=== PATIENT | male | born 1945 | race Caucasian/White ===

== ENCOUNTER 2021-01-01 11:50 | Emergency (ER) | payer MEDICARE ==
[~2021-01-01] VITALS: Ht 172.7 cm; Wt 94.8 kg
[2021-01-01] MEDS ORDERED: DILTIAZEM 24HR360 MG PO (12:21)
[2021-01-01] MEDS ORDERED: ZOLOFT100 MG PO (12:21)
[2021-01-01] MEDS ORDERED: TERAZOSIN HCL10 MG PO (12:21)
[2021-01-01] MEDS ORDERED: NORVASC10 MG PO (12:22)
[2021-01-01] MEDS ORDERED: ZESTRIL40 MG PO (12:22)
[2021-01-01] MEDS ORDERED: MONTELUKAST SOD10 MG PO (12:22)
[2021-01-01] MEDS ORDERED: BUSPIRONE HCL5 MG PO (12:23)
[2021-01-01] MEDS ORDERED: ACYCLOVIR800 MG PO (12:25)
== END 2021-01-01 12:30 | disposition home or self-care (01) ==
LOC: ED 11:50
DX: B02.9 Zoster without complications (principal); I10 Essential (primary) hypertension
CPT/HCPCS: 99282

== ENCOUNTER 2021-03-15 01:13 | Observation (INO) | payer OTHER ==
[~2021-03-15] VITALS: Ht 172.7 cm; Wt 91.7 kg
[~2021-03-15 01:13] MED LIST: ACYCLOVIR800 MG PO; BUSPIRONE HCL5 MG PO; DILTIAZEM 24HR360 MG PO; MONTELUKAST SOD10 MG PO; NORVASC10 MG PO; ZESTRIL40 MG PO; ZOLOFT100 MG PO
--- NOTE | 2021-03-15 06:40 | NUR ---
pt ARRIVES TO MS VIA STRETCHER, AMBULATORY TO HOSPITAL BED. PRESENT IN ROOM. IVF INFUSING WNL ORDERED. ORIENTATION TO ROOM PROVIDED. pt RATES PAIN 8/10 IN ABDOMEN, PRN PAIN MEDICATION ADMINISTERED. pt HAS CALL LIGHT AND PERSONAL SUPPLIES IN REACH. WARM BLANKET PROVIDED.
--- NOTE | 2021-03-15 07:15 | NUR ---
Report received from nightshift RNs. Pt resting in bed, A+O, states no needs at this time. MD at bedside.
--- NOTE | 2021-03-15 07:50 | NUR ---
PT AWAKE IN ROOM. PT COMPLAINING OF THIRST, PT IS NPO. WARM CLOTH GIVEN FOR FACE. WHITE BOARD IS UPDATED. CALL LIGHT WITHIN REACH, FAMILY IN ROOM. NO FURTHER NEEDS AT THIS TIME.
--- NOTE | 2021-03-15 09:15 | NUR ---
Scheduled medications administered, ABX infusing WNL. Pt resting in bed, states not having pain since last PRN medication dose. Surgical wipe down complete, SCDs in place. Assessment complete. Pt has no needs. at bedside, engaged in cares and attentive to pt. VSS.
--- NOTE | 2021-03-15 09:15 | NUR ---
Cardiac medications held at this time, surgery RN states will give when needed, verified with charge master coordinator. Pt BP 117/52, HR 62.
--- NOTE | 2021-03-15 09:48 | NUR ---
PT RECIEVED PRE-OP WIPE DOWN, FRESH GOWN, FRESH LINEN, AND WARM BLANKETS.
--- NOTE | 2021-03-15 10:10 | NUR ---
Pt. lives in a house in [place] with his . Does not use any DME. Is active in [employer] and [employer]. [facility] is a [place] [facility]. Will have Lap junie at 11:30 today. Plans on dc when cleared medically.
[2021-03-15] MEDS ORDERED: FLUTICASONE PRO16 GM NAS (10:35)
[2021-03-15] MEDS ORDERED: STIOLTO RESPIMAT4 GM INH (10:36)
[2021-03-15] MEDS ORDERED: VENTOLIN HFA18 GM INH (10:37)
[2021-03-15] MEDS ORDERED: ALLERGY EYE DRO10 M1 OU (10:41)
[2021-03-15] MEDS ORDERED: XALATAN2.5 ML OU (10:41)
[2021-03-15] MEDS ORDERED: GLUCOSAMINE HC500 MG PO (10:44)
[2021-03-15] MEDS ORDERED: CO Q10100 MG PO (10:44)
[2021-03-15] MEDS ORDERED: MULTI-DAY PLUS1 EACH PO (10:45)
[2021-03-15] MEDS ORDERED: TERAZOSIN HCL10 MG PO (10:47)
--- NOTE | 2021-03-15 12:24 | CONS ---
[facility] [address] [place], [place] [address] Signed DATE OF CONSULTATION: 03/15/2021 CHIEF COMPLAINT: Upper abdominal pain. HISTORY OF PRESENT ILLNESS: Siria is a 75-year-old gentleman who had belt-like epigastric abdominal pain two days ago. It seemed to go away. Then last night after eating dinner, it came on and continued to persist. About midnight, he decided to have his bring him to the emergency room. His white count was normal along with a liver function test, but the CT scan shows a mildly inflamed gallbladder wall with sludge versus stones in his gallbladder, but an unremarkable common bile duct. I have been asked to admit him as a general surgeon on-call. He has been admitted, hydrated and started on Rocephin and Flagyl along with pain control. He said overall he feels a little better. PAST MEDICAL HISTORY: Hypertension, hepatitis B virus, asthma, horseshoe kidney, and benign prostatic hyperplasia. PAST SURGICAL HISTORY: Includes lipomas x2. SOCIAL HISTORY: He does not smoke. He has a drink once in a while. He is to his Helen at [phone]. They have two children. 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 His primary care provider is Samira Cage. FAMILY HISTORY: Mom and dad both had hypertension. REVIEW OF SYSTEMS: He had 10 systems reviewed and spoke about his asthma. He also confirmed that he does take his blood pressure pills regularly. ALLERGIES: None. MEDICATIONS: Diltiazem extended release mg p.o. daily, sertraline 100 mg p.o. daily, terazosin 10 mg p.o. q. p.m., lisinopril 40 mg p.o. daily, amlodipine 10 mg p.o. daily, Montelukast 10 mg p.o. daily, albuterol p.r.n., tiotropium/olodaterol. Electronically Signed By: JENNY SIMON MD 03/15/21 1224 PATIENT NAME: SIRIA MIRANDA CONSULTATION DATE OF : 45 REPORT #: [id number] PHYSICIAN: JENNY SIMON MD PCP: SAMIRA CAGE REPORT IS CONFIDENTIAL AND NOT TO BE RELEASED WITHOUT AUTHORIZATION [facility] [address] [place], [place] [address] Signed PHYSICAL EXAMINATION: VITAL SIGNS: Blood pressure is 146/74, heart rate 65, respiratory rate is 18, temperature is 98.0. He is 98% on room air. He is 5 feet 8 inches at 91 kg. GENERAL: Siria is a 75-year-old gentleman who generally appears healthy and at his stated age. His is at the bedside. I have helped his with a colonoscopy in the past and therefore, I know Helen and her , Siria. He does not appear to be any severe distress. He is a good historian. LUNGS: Clear to auscultation bilaterally. HEART: Regular rate and rhythm without murmurs. ABDOMEN: Generally soft and flat and he said the main area of pain is in the right upper quadrant, but it does extend across the upper abdomen in a belt like fashion labs. LABORATORY DATA: His white blood count is 9.9, hemoglobin 13, neutrophils 86. Electrolytes are unremarkable. Urine specific gravity was little high at 1.034. Total bilirubin 0.6, AST 16, ALT 18, alkaline phosphatase 75, albumin is 4.3, lipase is 5. COVID has been done and I am assuming it is negative, but we will have to check. RADIOGRAPHIC STUDIES: A CT scan and pelvis is reviewed along with the report. He does have a mildly inflamed gallbladder with some sludge versus stones and an unremarkable common bile duct. ASSESSMENT AND PLAN: Siria is a 75-year-old gentleman who presents with cholecystitis and cholelithiasis. He has been admitted, given IV fluids, antibiotics and pain control. I have reviewed with him the above findings. I gave him a brochure on the gallbladder. We discussed the location and function of the gallbladder. We have discussed laparoscopic versus open cholecystectomy. They understand the expected intraop and postop course. We did review the risks including, but not limited to bleeding, infection, scarring, change in contour of the skin, damage to bowel damage to main bile duct, incisional hernias and other unforeseen comorbidities. They have expressed understanding and would like to proceed with surgery today. We will see if I can fit him in the middle of the day or at the end of the day. They have expressed understanding and agreed to above plan. Jenny Simon MD ALB/MODL /[id number] Electronically Signed By: JENNY SIMON MD 03/15/21 1224 PATIENT NAME: SIRIA MIRANDA CONSULTATION DATE OF : 45 REPORT #: [id number] PHYSICIAN: JENNY SIMON MD PCP: SAMIRA CAGE REPORT IS CONFIDENTIAL AND NOT TO BE RELEASED WITHOUT AUTHORIZATION [facility] [address] [place] [address] Signed cc: MD Samira Morrison FNP Copies: JENNY SIMON MD, DANA FNP ~ Electronically Signed By: JENNY SIMON MD 03/15/21 1224 PATIENT NAME: SIRIA MIRANDA CONSULTATION DATE OF : 45 REPORT #: [id number] PHYSICIAN: JENNY SIMON MD PCP: SAMIRA CAGE REPORT IS CONFIDENTIAL AND NOT TO BE RELEASED WITHOUT AUTHORIZATION
--- NOTE | 2021-03-15 12:41 | EKG ---
[facility] [address] [facility] [place], [place] [address] Signed Normal sinus rhythm Normal ECG No previous ECGs available Confirmed by SHAHEEN BULLARD DO ([id number]) on 03/15/2021 12:41:13 PM Electronically Signed By: SHAHEEN BULLARD DO 03/15/21 1241 PATIENT NAME: SIRIA MIRANDA Electrocardiogram DATE OF : 45 PHYSICIAN: SHAHEEN BULLARD DO REPORT #: [id number] REPORT IS CONFIDENTIAL AND NOT TO BE RELEASED WITHOUT AUTHORIZATION
--- NOTE | 2021-03-15 15:10 | NUR ---
Pt returns to med surg floor from PACU. VSS, drowsy but oriented. CPOX in place, SPO2 94% on 0.5L O2 NC. Pt reports no pain. IVF infusing WNL. SCDs in place. 4x lap sites visualized, covered C/D/I. Pt taking sips of water, tolerating well at this time. Will continue to monitor
--- NOTE | 2021-03-15 15:20 | NUR ---
03/15/21 1520 Emily Aldana 1425 PT ARRIVED IN PACU NON RESPONSIVE WITH OPA IN PLACE. EXPIRATORY WHEEZES NOTED. 1435 PT REACTIVE. OPENS EYES AND FALLS BACK TO SLEEP. 1445 PT AWAKE. OPA REMOVED. NO C/O'S. ICE TO ABD. 1500 TAKING SIPS OF WATER. NO C/O'S. 1510 TO ROOM 113. REPORT GIVEN TO RN. BED PLUGGED IN AND FAMILY AT BEDSIDE.
--- NOTE | 2021-03-15 16:10 | NUR ---
VITALS TAKEN, PT ORIENTED AT DROWSY. TAKING SIPS OF WATER. ON CPOX, 0.5L NC SPO2 94%. NO NEEDS AT THIS TIME.
--- NOTE | 2021-03-15 16:50 | NUR ---
medications reconciled
--- NOTE | 2021-03-15 17:15 | NUR ---
VSS, PT A+O. IVF INFUSING WNL. PT REPORTS NO PAIN OR NEEDS.
--- NOTE | 2021-03-15 18:38 | NUR ---
phoned, orders to administer cardizem for increasing BP. Will continue to monitor
--- NOTE | 2021-03-15 19:35 | NUR ---
REPORT RECEIVED FROM DAY SHIFT RN. PT LYING IN BED ALERT AND ORIENTED. AT BEDSIDE. SpO2 92% ON RA. HR 80'S. PT DENIES PAIN OR NAUSEA AT THIS TIME. IVF INFUSING. DENIES NEEDS. WHITE BOARD UPDATED. CALL LIGHT IN REACH.
--- NOTE | 2021-03-15 20:13 | NUR ---
SPO2 ALARMING ON CPOX, SPO2 78% ON RA WHILE pt SLEEPING, AWAKENS, ENCOURAGED TO DEEP BREATHE, SPO2 INCREASES TO 86-87% ON RA. 2L OXYGEN BY NC APPLIED, SPO2 INCREASES TO 92%. BED ALARM ON. CALL LIGHT IN REACH.
--- NOTE | 2021-03-15 20:45 | NUR ---
PT REPORTS REFLUX THAT "COMES AND GOES". DR. SIMON CALLED. NEW TELEPHONE ORDERS RECEIVED VERIFIED WITH READ BACK METHOD. UPDATES PROVIDED.
--- NOTE | 2021-03-15 21:15 | NUR ---
EVENING ASSESSMENT COMPLETE. SCHEDULED MEDS ADMINISTERED PER EMAR. PT REPORTS ABD PAIN /. DENIES PRN FOR PAIN AT THIS TIME. DENIES NAUSEA. LAP SITES X 4 WITH SMALL AMOUNT SEROSANG DRAINAGE. ABD DISTENDED, PT STATES NORMAL. BOWEL TONES ACTIVE. PT REPORTS FLATUS. UP TO BR WITH SBA TO VOID. GAIT STEADY. BACK TO BED. 2L/NC IN PLACE. IVF INFUSING ORDERED. PT DENIES QUESTIONS OR CONCERNS AT THIS TIME. CALL LIGHT IN REACH. BED ALARM FOR SAFETY.
--- NOTE | 2021-03-15 22:08 | NUR ---
CPOX ALARMING. PT HAD REMOVED OXYGEN. SpO2 DOWN TO LOW 80'S. PT SNORING SOFTLY UPON ENTERING ROOM. 2L/NC REPLACED. SpO2 BACK UP TO MID 90'S.
--- NOTE | 2021-03-16 00:15 | NUR ---
PT RESTING IN BED WITH EYES CLOSED, NAD. RESPIRATIONS EVEN. SNORING SOFTLY. SpO2 91% ON 2L/NC. HR 60'S. BED ALARM ON FOR SAFETY.
--- NOTE | 2021-03-16 02:07 | NUR ---
CALL LIGHT ANSWERED. PT UP TO BR WITH SBA TO VOID. GAIT STEADY. AMB SMALL DISTANCE IN HALLWAY WITH SBA. BACK TO BED, CAMI WELL. PT DENIES PAIN OR NAUSEA. SpO2 89% ON RA AFTER RETURNING FROM AMB. 2L/NC PLACED. SATS 92%. ABD ASSESSMENT UNCHANGED. NO FURTHER NEEDS. CALL LIGHT IN REACH. BED ALARM FOR SAFETY.
--- NOTE | 2021-03-16 05:05 | NUR ---
CALL LIGHT ANSWERED. PT REQUESTING TO GET OUT OF BED. SBA TO AMB LENGTH OF HALLWAY AND THEN TO RECLINER. CAMI WELL. SpO2 NOTED TO BE MID TO HIGH 80'S ON RA AFTER AMB. PT ON RA SITTING IN RECLINER, SpO2 90-91% ON RA. PT DENIES SOB. PERSONAL INHALER FOR ASTHMA USED. PT DENIES PAIN OR NAUSEA. COFFEE AND FRESH WATER PROVIDED. NO FURTHER NEEDS AT THIS TIME. CALL LIGHT IN REACH.
--- NOTE | 2021-03-16 06:05 | NUR ---
CPOX ALARMING, SPO2 86% ON RA, pt SLEEPING. AWAKENS TO VOICE. 2L OXYGEN BY NC APPLIED, SPO2 INCREASES TO 94% WHILE AWAKE. pt C/O PAIN AFTER COUGHING, 4/10 PAIN IN ABDOMEN. PRN NORCO ADMINISTERED. pt REFUSES TYLENOL. EDUCATION PROVIDED. CALL LIGHT IN REACH. LIGHTS OFF IN ROOM. pt IS UP IN CHAIR AT THIS TIME.
--- NOTE | 2021-03-16 06:41 | OR ---
[facility] [address] [place], [place] [address] Signed DATE OF OPERATION: 03/15/2021 SURGEON: Jenny Simon MD PREOPERATIVE DIAGNOSIS: Acute on chronic cholecystitis with cholelithiasis. POSTOPERATIVE DIAGNOSIS: Acute on chronic cholecystitis with cholelithiasis. PROCEDURE: Laparoscopic cholecystectomy without intraoperative cholangiogram. ESTIMATED BLOOD LOSS: None. FINDINGS: Siria indeed had a thickened gallbladder wall with pus in his gallbladder. He had several small 3-4 mm gallstones. He had tremendous inflammatory changes in the triangle of Calot precluding any further dissection down the cystic duct. Consequently, we did not perform an intraoperative cholangiogram. A small cuff of gallbladder was left on the cystic duct due to the above findings. INDICATIONS: Siria is a 75-year-old gentleman who at least 1 day prior to admission, had an episode of significant upper abdominal pain with vomiting. The pain seemed to subside, so he let it pass. Although the next day it came back and he finally had to go to the emergency room about midnight. At 4:30 in the morning, I had been called. He had tenderness in the right upper quadrant but all the way across the upper abdomen in a belt like fashion. White count was normal. Liver function tests were normal. Lipase was normal as well. CT scan of the abdomen and pelvis showed a mildly inflamed gallbladder wall with sludge versus stones in the gallbladder, but an unremarkable common bile duct. I had been asked to admit him as a general surgeon on-call. He received Rocephin and Flagyl and IV fluids and pain control. I met with Siria and his earlier this morning. We reviewed the above findings in detail. I gave them a brochure on the gallbladder. We had discussed the location and function of the gallbladder. We discussed laparoscopic versus open cholecystectomy. We also discussed the expected intraop and postop course. There is risk to surgery including, but not limited to bleeding, infection, scarring, change in contour of the skin, damage to bowel, damage to main bile duct, incisional hernias and other unforeseen comorbidities. Electronically Signed By: JENNY SIMON MD 03/16/21 0641 PATIENT NAME: SIRIA MIRANDA OPERATIVE REPORT DATE OF : 45 REPORT #: [id number] PHYSICIAN: JENNY SIMON MD PCP: SAMIRA BEST REPORT IS CONFIDENTIAL AND NOT TO BE RELEASED WITHOUT AUTHORIZATION [facility] [address] [place] [address] Signed In addition, 3 to 7% of these patients will have a retained common bile duct stone and need an ERCP. They had expressed understanding and wished to proceed. PROCEDURE NOTE: Siria was taken into our operating room and placed in the supine position. I had spoke with Siria and his once again in our day surgery area. He was placed under general endotracheal tube anesthesia. He was already on preoperative antibiotics along with subcutaneous heparin. SCDs were utilized. He was then prepped and draped in the usual sterile fashion. All trocars were placed in usual positions under direct visualization of camera without difficulty. We took pictures throughout for photodocumentation. He had a large amount of intraabdominal fat that we had to move away from the liver and the gallbladder. Even with the gallbladder elevated, we could not access the infundibulum or the triangle of Calot. We therefore had an additional nurse scrub in. We introduced the fan retractor through the midline. Even then, we had fat coming over our fan retractor into our operative field. We started with our dissection about 1/[address] down from the fundus. It took a while to peel the fat down and as we approached the triangle of Calot, the inflammatory changes were increasing to the point where we really could not dissect any further. We certainly did want to run our cautery through this area. We had opened the gallbladder and suctioned out initially clear fluid and then later pus. That allowed us to see down the infundibulum towards the cystic duct. We had placed a clip across the cystic artery and then divided. We divided the gallbladder just as it came to the cystic duct and we left just a small cuff of gallbladder in place. We secured the cystic duct stump with a PDS Endoloop and 2 clips have been placed across that area for future reference. The gallbladder was then slowly and carefully removed from the gallbladder fossa with the help of cautery and placed into an EndoCatch bag. We irrigated out the right upper quadrant and suctioned that out until clear. We used our laparoscopic suturing device to pass 0-Vicryl suture on either side of the fascia and tied this suture down to close the fascia primarily in the subxiphoid trocar site as well as the mid epigastric trocar site. All the gas was allowed to escape and all the trocars were removed along with the gallbladder. The gallbladder had been opened on the back table by our circulating nurse. It clearly was thickened, inflamed, and friable with multiple small 3 to 4 mm stones. We then closed the fascia of the supraumbilical trocar site with interrupted [id number] and simple 0-Vicryl sutures. Local anesthetic was injected into all trocar sites. Each trocar site was irrigated and suctioned out until clear. The skin and dermis of each trocar site were closed with interrupted 3-0 Monocryl subcuticular sutures. Dry gauze and tape were applied to all incisions. Siira was then awakened from his anesthesia, extubated in the OR, and taken to recovery room in stable condition. Electronically Signed By: JENNY SIMON MD 03/16/21 0641 PATIENT NAME: SIRIA MIRANDA OPERATIVE REPORT DATE OF : 45 REPORT #: [id number] PHYSICIAN: JENNY SIMON MD PCP: SAMIRA BEST REPORT IS CONFIDENTIAL AND NOT TO BE RELEASED WITHOUT AUTHORIZATION [address] [address] Signed MD KEVIN Morrison/[place]ER[place] /[id number] cc: MD Samira Morrison FNP Copies: JENNY SIMON MD, DANA FNP ~ Electronically Signed By: JENNY SIMON MD 03/16/21 0641 PATIENT NAME: SIRIA MIRANDA OPERATIVE REPORT DATE OF : 45 REPORT #: [id number] PHYSICIAN: JENNY SIMON MD PCP: SAMIRA BEST REPORT IS CONFIDENTIAL AND NOT TO BE RELEASED WITHOUT AUTHORIZATION
--- NOTE | 2021-03-16 07:10 | NUR ---
REPORT RECEIVED FROM MOUNA CUEVA. PT SITTING UP IN CHAIR WITH IVF INFUSING WNL. ON 1L O2 NC, SPO2 95% AT THIS TIME. STATES NO PAIN OR SOB. REVIEWED PLAN OF CARE, PT AGREEABLE.
--- NOTE | 2021-03-16 07:30 | NUR ---
Dr. Perez stopped by my office. He is discharging Raoms today. [facility] with [facility]. Will notify Linda ZARATE to schedule.
[2021-03-16] MEDS ORDERED: OXYCODONE HCL5 MG PO (08:29)
[2021-03-16] MEDS ORDERED: AUGMENTIN 500-1 EACH PO (08:30)
--- NOTE | 2021-03-16 09:00 | NUR ---
PT DISCHARGED VIA WC WITH ALL BELONGINGS IN HAND WITH TO DRIVE HOME. DISCHARGE TEACHING PROVIDED, ALL QUESTIONS ANSWERED. VSS, A+O, PT HAS NO PAIN OR NEEDS. RX AND RX INSTRUCTIONS PROVIDED. SALINE LOCK REMOVED, CATH INTACT.
--- NOTE | 2021-03-16 09:13 | NUR ---
called pts. provider to schedule a follow up sooner rather than later and the care team i spoke to is aware and is going to call him directly. made sure they knew about the hypoxia and asthma, also will need a referral to the pulmonolgist. they are aware.
--- NOTE | 2021-03-16 09:25 | DS ---
[facility] [address] [place], [place] [address] Signed ADMISSION DATE: 03/15/2021 DISCHARGE DATE: 03/16/2021 FINAL DIAGNOSIS: Acute on chronic cholecystitis with cholelithiasis. PROCEDURE: Laparoscopic cholecystectomy without intraoperative cholangiogram. HISTORY OF PRESENT ILLNESS: Siria is a 75-year-old gentleman with rather significant asthma. He had developed a belt-like upper abdominal pain a day prior to admission. It seemed to resolve. He came back by midnight he was in severe pain. He came to the emergency room with his . White count was 9.9. Liver function tests were fine. CT scan showed a mildly thickened and inflamed gallbladder with sludge versus stones and an unremarkable common bile duct. I was therefore asked to admit him as a general surgeon on-call. HOSPITAL COURSE: Siria was admitted as above and started on Rocephin and Flagyl and pain control. He was hydrated as well. I met with him in the morning and he went to surgery that same day. He had a gallbladder full of pus and small stones. The triangle of Calot was tremendously inflamed and could not be dissected free. Therefore, we did not perform an intraoperative cholangiogram. He was kept overnight because for the hypoxemia and also for pain control. In addition, he did not eat anything later night. This morning now he is feeling much better. He is tolerating his diet and feels comfortable going home. However, his asthma is quite significant and he may be hypoxic at home and not realize it. In that regard, he needs to follow up with his primary care provider. DISCHARGE PLANS AND MEDICATIONS: Siria is going to be discharged to home with Augmentin 500 mg one tablet p.o. b.i.d. for 5 days. He will receive oxycodone IR 5 mg 1-2 tablets p.o. q.6 hours p.r.n. for severe pain. We will dispense 35 tablets with no refills. He can supplement with Tylenol, ibuprofen and Aleve for ztqr-au-[id number] postoperative pain. That can be purchased [id number]. He can resume all his chronic medications today. He can follow a regular diet. He can shower and bathe as usual. He should not do any heavy pushing, pulling, lifting over about 20 pounds. He will follow up with his primary care provider regarding his asthma and hypoxemia. He may need to follow up with a distribution manager as well. He could in fact qualify for home oxygen at some point. I have reviewed this with Siria. He has expressed understanding and agrees to above plan. Electronically Signed By: JENNY SIMON MD 03/16/21 0925 PATIENT NAME: SIRIA MIRANDA DISCHARGE SUMMARY DATE OF : 45 REPORT #: [id number] PHYSICIAN: JENNY SIMON MD PCP: SAMIRA BEST REPORT IS CONFIDENTIAL AND NOT TO BE RELEASED WITHOUT AUTHORIZATION [facility] [address] [place] [id number] Signed Jenny Simon MD ALB/MODL /[id number] cc: MD Samira Morrison FNP Copies: JENNY SIMON MD, DANA FNP ~ Electronically Signed By: JENNY SIMON MD 03/16/21 0925 PATIENT NAME: SIRIA MIRANDA DISCHARGE SUMMARY DATE OF : 45 REPORT #: [id number] PHYSICIAN: JENNY SIMON MD PCP: SAMIRA BEST REPORT IS CONFIDENTIAL AND NOT TO BE RELEASED WITHOUT AUTHORIZATION
--- NOTE | 2021-03-16 09:30 | NUR ---
Stopped to see pt, he has discharge to home with his .
--- NOTE | 2021-03-16 12:47 | PATH ---
[facility] [address] [place], [place] [address] Signed SPECIMEN(S): A GALLBLADDER AND STONES SPECIMEN SOURCE: A. GALLBLADDER AND STONES CLINICAL HISTORY: Cholecystitis and cholelithiasis. FINAL PATHOLOGIC DIAGNOSIS: Gallbladder, cholecystectomy: - Acute on chronic cholecystitis with cholesterolosis. - Cholelithiasis. NAL:cml:C2NR MICROSCOPIC EXAMINATION: Histologic sections of all submitted blocks are examined by light microscopy. These findings, together with the gross examination, support the pathologic diagnosis. GROSS DESCRIPTION: The specimen, labeled "RM, gallbladder," is received in formalin and consists of Specimen: Previously opened gallbladder. Dimensions: 7.8 cm in length and 6.2 cm in inner circumference. Serosa: Violaceous, smooth and focally congested. Cystic Duct: Unobstructed. Calculi: Several black gallstones within the container that range in size from 0.1-0.4 cm in greatest dimension. Mucosa: [place] and velvety. Wall thickness: 0.4 cm. Lymph node: No pericystic lymph nodes are grossly identified. Additional: None. Train Brakeman sections are submitted in cassette (A1). JS (under the direct supervision of a pathologist) The Gross Description was prepared using a voice recognition system. The report was reviewed for accuracy; however, sound-alike word errors, addition and/or deletions may occur. If there is any question about this report, please contact Client Services. PERFORMING LABORATORY: The technical component was performed by [employer], Toan Carbone, PATIENT NAME: SIRIA MIRANDA PATHOLOGY DATE OF : 45 REPORT #: [id number] PHYSICIAN: INESSA DANIELS PCP: GWEN BEST REPORT IS CONFIDENTIAL AND NOT TO BE RELEASED WITHOUT AUTHORIZATION [facility] [address] [place], [place] [address] [place] [address] (Heel Builder: Leda Aranda MD; CLIA# [id number]). Professional interpretation was performed by [facility], [address] [address] (CLIA# [id number]). Diagnostician: Kinga Forde MD Pathologist Electronically Signed 03/16/2021 Copies: ~ PATIENT NAME: SIRIA MIRANDA PATHOLOGY DATE OF : 45 REPORT #: [id number] PHYSICIAN: INESSA DANIELS PCP: GWEN BEST REPORT IS CONFIDENTIAL AND NOT TO BE RELEASED WITHOUT AUTHORIZATION
== END 2021-03-16 09:10 | disposition home or self-care (01) ==
LOC: ED 01:13 → MS 01:15
PROVIDERS: ADMIT Colon & Rectal Surgery; ATTEND Colon & Rectal Surgery
PROC: 0FT44ZZ Resection of Gallbladder, Percutaneous Endoscopic Approach (ICD-10-PCS; principal; 2021-03-15 11:30)
DX: K80.12 Calculus of gallbladder with acute and chronic cholecystitis without obstruction (principal); I10 Essential (primary) hypertension; J45.909 Unspecified asthma, uncomplicated; Z20.822 Contact with and (suspected) exposure to COVID-19
CPT/HCPCS: 00790; 74177; 80053; 81001; 83690; 85025; 88304; 93005; 93010; 94762; 96366; 96368; 96375; 96376; 99285-25; C9113; C9803; G0378; J0131; J0330; J0696; J1100; J1170; J1650; J1885; J2001; J2250; J2405; J2704; J3480; J7121; Q9967; U0003

== ENCOUNTER 2024-07-30 09:41 | Emergency (ER) | payer OTHER, MEDICARE ==
[~2024-07-30] VITALS: Ht 172.7 cm; Wt 94.3 kg
[~2024-07-30 09:41] MED LIST changes: +ALLERGY EYE DRO10 M1 OU; +AUGMENTIN 500-1 EACH PO; +CO Q10100 MG PO; +FLUTICASONE PRO16 GM NAS; +GLUCOSAMINE HC500 MG PO; +MULTI-DAY PLUS1 EACH PO; +OXYCODONE HCL5 MG PO; +STIOLTO RESPIMAT4 GM INH; +TERAZOSIN HCL10 MG PO; +VENTOLIN HFA18 GM INH; +XALATAN2.5 ML OU
[2024-07-30] MEDS ORDERED: ACETAMINOPHEN 500 MG TAB PO ONE (10:00)
[2024-07-30] MEDS ORDERED: OXYCODONE HCL5 MG PO (12:07)
[2024-07-30 12:32] VITALS: BP 124/74
== END 2024-07-30 12:33 | disposition home or self-care (01) ==
LOC: ED 09:41
DX: S42.292A Other displaced fracture of upper end of left humerus, initial encounter for closed fracture (principal); S42.212A Unspecified displaced fracture of surgical neck of left humerus, initial encounter for closed fracture; W01.0XXA Fall on same level from slipping, tripping and stumbling without subsequent striking against object, initial encounter; R91.1 Solitary pulmonary nodule; I10 Essential (primary) hypertension; J45.909 Unspecified asthma, uncomplicated; B18.1 Chronic viral hepatitis B without delta-agent; Z79.899 Other long term (current) drug therapy
CPT/HCPCS: 73030; 73200; 99284-25; A9270

== ENCOUNTER 2025-04-21 20:15 | Emergency (ER) | payer OTHER, MEDICARE ==
[~2025-04-21] VITALS: Ht 172.7 cm; Wt 93.7 kg
[2025-04-21 22:40] LABS: BLOOD/HGB, URINE NEGATIVE (Negative); KETONE, URINE NEGATIVE (Negative); LEUK ESTERASE, URINE NEGATIVE (negative); NITRITE, URINE NEGATIVE (negative)
[2025-04-21 22:45] LABS: EPITHELIAL CELLS, URINE SQUAMOUS 1+ /lpf (0-1+)
[2025-04-21 22:46] LABS: BACTERIA, URINE RARE /hpf (negative); CASTS, URINE NONE SEEN \\lpf; CRYSTALS, URINE NONE SEEN (0-1+); REFLEX CULTURE, URINE No (No)
[2025-04-21] MEDS ORDERED: HYDROCODON-ACE1 EA10 PO (23:00)
[2025-04-21] MEDS ORDERED: HYDROCODONE BIT/ACETAMINOPHEN 5/325 MG 1 TAB HOME.PACK PO PRN (23:00)
[2025-04-21 23:18] VITALS: BP 142/75
== END 2025-04-21 23:19 | disposition home or self-care (01) ==
LOC: ED 20:15
PROVIDERS: Emergency Medicine
DX: S32.019A Unspecified fracture of first lumbar vertebra, initial encounter for closed fracture (principal); I10 Essential (primary) hypertension; J45.909 Unspecified asthma, uncomplicated; Z79.899 Other long term (current) drug therapy; W01.0XXA Fall on same level from slipping, tripping and stumbling without subsequent striking against object, initial encounter
CPT/HCPCS: 72100; 72131; 81001; 99284-25; A9270

== ENCOUNTER 2025-04-25 08:19 | Emergency (ER) | payer OTHER, MEDICARE ==
[~2025-04-25] VITALS: Ht 172.7 cm; Wt 93.5 kg
[~2025-04-25 08:19] MED LIST changes: +HYDROCODON-ACE1 EA10 PO
--- OUTSIDE RECORDS SUMMARY | 2025-04-25 08:26 | XMS ---
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 [facility] has no Care Guidelines for this patient. [place] [facility] NOTE: Visits indicate total known visits. ED/UCC VISIT TRACKING (12 MO.) [facility]25 08[facility] COMPLAINT: - CONSTIPATION 04/21/2025 20:16 [facility] TYPE: Emergency COMPLAINT: - BACK INJURY DIAGNOSES: - Essential (primary) hypertension - Fall on same level from slipping, tripping and stumbling without subsequent striking against object, initial encounter - Low back pain, unspecified - Other custodial (current) drug therapy - Unspecified asthma, uncomplicated - Unspecified fracture of first lumbar vertebra, initial encounter for closed fracture 07/30/2024 09:42 [facility] TYPE: Emergency COMPLAINT: - RT ARM INJURY DIAGNOSES: - 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 - Essential (primary) hypertension - Fall on same level from slipping, tripping and stumbling without subsequent striking against object, initial encounter - Other displaced fracture of upper end of left humerus, initial encounter for closed fracture - Other custodial (current) drug therapy - Pain in left shoulder - Solitary pulmonary nodule - Unspecified asthma, uncomplicated - Unspecified displaced fracture of surgical neck of left humerus, initial encounter for closed fracture INPATIENT VISIT TRACKING (12 MO.) 08/16/2024 07:48 [place] TYPE: Surgery DIAGNOSES: - Other displaced fracture of upper end of left humerus, initial encounter for closed fracture [email or web address]
[2025-04-25] MEDS ORDERED: MAGNESIUM SULFATE 2 GM/50 ML BAG IV ONE (08:45)
[2025-04-25] MEDS ORDERED: MAGNESIUM CITRATE 300 ML BTL PO ONE (09:00)
[2025-04-25 09:30] VITALS: BP 143/73
== END 2025-04-25 09:30 | disposition home or self-care (01) ==
LOC: ED 08:19
DX: K59.00 Constipation, unspecified (principal); I10 Essential (primary) hypertension; J45.909 Unspecified asthma, uncomplicated
CPT/HCPCS: 96372; 99283; J2212